=== PATIENT | female | born 1995 | race African-American/Black ===

== ENCOUNTER 2016-05-24 12:22 | Emergency (ER) | payer OTHER ==
--- NOTE | 2016-05-24 13:13 | PROVIDER DOCUMENTATION ---
HPI-Female /OB/Breast - General Chief Complaint: Abdominal Pain Stated Complaint: ABD PAIN,[employer] Time Seen by Provider: 05/24/16 13:01 Source: reports: patient Allergies/Adverse Reactions: Patient Allergies Allergy/AdvReac Type Severity Reaction Status Date / Time No Known Allergies Allergy Verified 05/24/16 13:14 Home Medications: Home Medication List Medication Instructions Recorded Confirmed Last Taken Type Cephalexin [Keflex] 500 mg PO BID #20 capsule 05/24/16 Unknown Rx Metronidazole [Flagyl] 500 mg PO BID #20 tablet 05/24/16 Unknown Rx - History of Present Illness-Female /OB Nature of Presenting Problem: 20 y/o AAF , c/o lower pelvic pain, a thick white vaginal discharge daily and dysuria for about 1 month now. She was checked one month ago for these same symptoms and told all the testing was negative, including blood work, UA and vaginal swabs. States last unprotected sex was 1 month ago right before she was checked. Denies chance of . Pain in the pelvic region, cramping, intermittent, denies dysparunia or bleeding. Review of Systems - Adult - REVIEW OF SYSTEMS - ADULT Constitutional: reports: no symptoms reported. denies: chills, fever, fatique Eyes: reports: no symptoms reported. denies: decreased vision, blurred vision, double vision, eye pain Ears, Nose, Mouth & Throat: reports: no symptoms reported. denies: ear pain, nose pain, throat pain Cardiovascular: reports: no symptoms reported. denies: chest pain, palpitations Respiratory: reports: no symptoms reported. denies: cough, shortness of breath , wheezing Gastrointestinal: reports: see HPI, abdominal pain. denies: diarrhea, nausea, vomiting Genitourinary: reports: see HPI, dysuria, discharge. denies: frequency, flank pain, hematuria, incontinence, urgency Musculoskeletal: reports: no symptoms reported. denies: bone pain, back pain, muscle aches Integumentary: reports: no symptoms reported. denies: rash Neurological: reports: no symptoms reported. denies: dizziness/vertigo, headache/migraines Psychiatric: reports: no symptoms reported Endocrine: reports: no symptoms reported Hematologic/Lymphatic: reports: no symptoms reported Allergic/Immunologic: reports: no symptoms reported All Other Systems: Reviewed and Negative Past History - Adult - PAST MEDICAL HISTORY-ADULT Review of Records: reports: Old Records Reviewed, Nursing Assessment Review, Medications Reviewed Major Childhood Illnesses: reports: denies history Cardiovascular: reports: denies history Respiratory: reports: denies history Gastrointestinal: reports: denies history Obstetrical/Gynecological: reports: denies history Genitourinary: reports: denies history Musculoskeletal: reports: denies history Neurological: reports: denies history Endocrine/Immune: reports: denies history Other Conditions: reports: denies history - PRIOR SURGERIES/PROCEDURES Surgical/Procedure History: reports: none - PRIOR HOSPITALIZATIONS Prior Hospitalizations: reports: none, for other non-related - IMMUNIZATION STATUS Childhood Immunizations: See Nurse Assessment Flu Vaccine: See Nurse Assessment - FAMILY HISTORY Family History: reviewed, not pertinent - SOCIAL HISTORY Smoking: denies Substance Use: none/never Alcohol Use Frequency: never Living Situation: family Physical Exam-General - PHYSICAL EXAM-ADULT Initial Vital Signs Reviewed: Yes - CONSTITUTIONAL General Appearance: appears well, alert, no apparent distress - EYES Eyes: PERRL/EOMI, pink conjunctivae - HEAD, EARS, NOSE, MOUTH & THROAT HENMT: normocephalic/atraumatic, moist mucous membranes - NECK Neck: full range of motion, normal inspection - RESPIRATORY Respiratory: chest non-tender, lungs clear, normal breath sounds, no pleuratic chest pain, no respiratory distress, no accessory muscle use. negative: respiratory distress, decreased breath sounds, accessory muscle use, crackles, rales, rhonchi, wheezing - CARDIOVASCULAR Cardiovascular: normal peripheral pulses, regular rate, rhythm. negative: tachycardia - GASTROINTESTINAL (ABDOMEN) Abdominal Exam: normal bowel sounds, non tender, soft, no organomegaly, no pulsatile mass. negative: distended, guarding, rigid, rebound, tenderness - GENITOURINARY Female Genitalia/Pelvic Exam: external exam normal, cervicitis, discharge, lesions (the cervic appears friable.), other (examination was painful. Darby as Strategy Associate) - MUSCULOSKELETAL Back Exam: normal inspection, no CVA tenderness Extremity: normal gait - SKIN Integumentary: normal color, normal turgor, warm/dry - NEUROLOGIC Neurologic: grossly normal, no motor/sensory deficits - PSYCHIATRIC Psych/Mental Status: normal mood/affect, normal thought content, normal thought process, oriented x 3 Progress - PLAN OF CARE/RESULTS Progress/Plan/Lab Results: Vital Signs Temp Pulse Resp BP Pulse Ox 05/24/16 12:57 98.3 F 115 H 20 126/66 100 No Known Allergies Allergy (Verified 05/24/16 13:14) I&O 05/23/16 05/24/16 05/25/16 06:59 06:59 06:59 Output Total 45 Balance -45 Laboratory 05/24/16 13:28 Urine Source CLEAN CATCH Urine Color YELLOW Urine Turbidity HAZY Urine pH 6.0 Ur Specific [place] 1.019 Urine Protein 30 A Ur Glucose (Stick) NEGATIVE Ur Ketones (Stick) NEGATIVE Urine Blood LARGE A Urine Nitrite NEGATIVE Urine Bilirubin NEGATIVE Urobilinogen Dipstick 2 A Urine Leukocytes LARGE A Urine WBC (Auto) 10-20 A Urine RBC (Auto) TNTC A U Epithel Cells (Auto) <10 Urine Bacteria (Auto) 1+ Orders Category Date Time Status ED: Urine Bedside ORDERED Care 05/24/16 13:02 Active Pelvic set up DIRECTED Care 05/24/16 13:06 Active CHLAMYDIA AND GC BY PCR URINE [HEROD] Stat Lab 05/24/16 13:28 Received GRAM STAIN [DIREX] Stat Lab 05/24/16 13:45 Completed URINALYSIS W/POSS RFLX CULT [URINALYSIS] Stat Lab 05/24/16 13:28 Completed WET PREP [RM] Stat Lab 05/24/16 13:45 Completed Azithromycin [Zithromax] Med 05/24/16 13:49 Discontinued 1,000 mg PO NOW ONE CefTRIAXONE [Rocephin] Med 05/24/16 13:49 Discontinued 250 mg IM NOW ONE Lidocaine 1% Pf [Xylocaine-Mpf 1%] Med 05/24/16 13:49 Discontinued 5 ml INJ NOW ONE Metronidazole [Flagyl] Med 05/24/16 13:49 Discontinued 2,000 mg PO NOW ONE clue cell sand uti Departure - Departure Time of Disposition Order: 14:39 DIAGNOSIS: Bacterial vaginosis, Acute UTI Disposition: HOME 01 Certified Medical Emergency: Emergent Condition: Stable Additional Instructions: Follow up with your recreational specialist ED Follow Up Instructions: You have been treated by a care provider in the Emergency Department. These instructions are being provided to you so you can have an understanding of how to care for yourself upon discharge. Upon discharge from the Emergency Department, you are responsible for making arrangements for follow-up care by a physician of your choice. Take all prescribed medications as directed. Return to the Emergency Department immediately for any new or worsening symptoms. You may call the Physician Referral phone number at [phone] to obtain a list of Physicians who are taking new patients. Prescriptions: Metronidazole [Flagyl] 500 mg PO BID #20 tablet Cephalexin [Keflex] 500 mg PO BID #20 capsule Referrals: None,PCP [Primary Care Provider] - Axel Saleh MD [STAFF PHYSICIAN] - Attestation - Physician/ KEVIN Attestation Patient care was provided by Advanced Practice Provider:: Yes Advanced Practice Provider:: Marixa Aleman Advanced Practice Provider documentation review:: The Mid-level provider documentation, treatment plan and medical decision making was reviewed by the physician who agrees with all treatment and medical decision making by the MLP.
[2016-05-24] MEDS ORDERED: FLAGYL PO ONE (13:49)
[2016-05-24] MEDS ORDERED: ROCEPHIN IM ONE (13:49)
[2016-05-24] MEDS ORDERED: ZITHROMAX PO ONE (13:49)
[2016-05-24] MEDS ORDERED: XYLOCAINE-MPF 1% INJ ONE (13:49)
[2016-05-24 13:53] LABS: URINE MICRO REVIEW NEEDED? NO; URINE SOURCE CLEAN CATCH
[2016-05-24 14:03] LABS: BILIRUBIN URINE NEGATIVE (NEGATIVE); BLOOD URINE LARGE (NEGATIVE); COLOR YELLOW; GLUCOSE URINE NEGATIVE (NEGATIVE); LEUKOCYTES URINE LARGE (NEGATIVE); NITRITE URINE NEGATIVE (NEGATIVE); PROTEIN URINE 30 mg/dL (NEGATIVE); SP GRAVITY URINE 1.019; TURBIDITY URINE HAZY (CLEAR); UROBILINOGEN URINE 2 mg/dL (NORMAL)
[2016-05-24 14:05] LABS: UR EPITHELIAL CELLS <10 /HPF (<10); URINE BACTERIA 1+ /HPF; URINE CULTURE NEEDED? YES; URINE RBC TNTC /HPF (<10)
[2016-05-24 15:04] VITALS: BP 119/73
== END 2016-05-24 15:04 | disposition home or self-care (01) ==
LOC: ED 12:22
DX: N76.0 Acute vaginitis (principal); B96.89 Other specified bacterial agents as the cause of diseases classified elsewhere; N39.0 Urinary tract infection, site not specified; R10.2 Pelvic and perineal pain; N89.8 Other specified noninflammatory disorders of vagina; R30.0 Dysuria
CPT/HCPCS: 81001; 87088; 87205; 87210; 87491; 87591; J0696